=== PATIENT | female | born 1970 | race African-American/Black ===

== ENCOUNTER 2017-11-20 00:31 | Emergency (ER) | payer SELFPAY ==
[2017-11-20] MEDS ORDERED: DEXAMETHASONE SOD PHOS INJ 10 MG/1 ML VIAL IM ONE (00:59)
[2017-11-20] MEDS ORDERED: KETOROLAC TROMETHAMINE 60 MG/2 ML SDV IM ONE (00:59)
--- NOTE | 2017-11-20 01:05 | ER Document Report ---
ED Neck/Back Problem - General Chief Complaint: Arm Pain Stated Complaint: SHOOTING PAINS FROM FINGER TIPS TO SHOULDER Time Seen by Provider: 11/20/17 00:51 Mode of Arrival: Ambulatory Information source: Patient Notes: 47-year-old female presents to ED for complaint of shooting pain from the fingertips up to the shoulder. She states she does not have any past medical history of this. But when we were discussing it. She states she does have pain in her neck upper back shoulder says sometimes in her arm. She also has sharp shooting pain in her lower back that she states she has a history of and is had in the past. She states she sometimes has pain radiating down her leg but not at this time. TRAVEL OUTSIDE OF THE [place] IN LAST 30 DAYS: No - HPI Patient complains to provider of: Pain, Upper back, Lower back - And down the right arm to the hand with tingling at and numbness at times Onset: Other - The lower back for a while in the upper back she states she has had in the past but has been since Friday. 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 denies: Constipation, Fever, Incontinence, Motor loss, Radiation to chest, Radiation to leg, Sensory loss, Sweaty, Unable to urinate Exacerbated by: Movement of neck, Movement of trunk Relieved by: Nothing Similar symptoms previously: Yes Recently seen / treated by doctor: No - Related Data Allergies/Adverse Reactions: latex Allergy (Verified 11/20/17 01:20) Past Medical History - General Information source: Patient - Social History Smoking Status: Never Smoker Cigarette use (# per day): No Chew tobacco use (# tins/day): No Smoking Education Provided: No Frequency of alcohol use: None Occupation: Manager [employer] Lives with: Family Family History: Other - Asthma and aneurysm. denies: Arthritis, CAD, COPD, CVA , DM, Hyperlipidemia, Hypertension, Malignancy, Thyroid Disfunction Patient has suicidal ideation: No Patient has homicidal ideation: No - Past Medical History Cardiac Medical History: Reports: None Pulmonary Medical History: Reports: Hx Asthma - A CHILD EENT Medical History: Reports: None Neurological Medical History: Reports: None Endocrine Medical History: Reports: None Renal/ Medical History: Reports: None Malignancy Medical History: Reports: None GI Medical History: Reports: None Musculoskeltal Medical History: Reports Hx Arthritis, Reports Hx Musculoskeletal Deformity Skin Medical History: Reports None Psychiatric Medical History: Reports: None Traumatic Medical History: Reports: None Infectious Medical History: Reports: None Past Surgical History: Reports: Hx Oral Surgery - WISDOM TEETH, Hx Tonsillectomy - AT AGE 30, Hx Tubal Ligation - 19 YEARS AGO Review of Systems - Review of Systems Notes: Constitutional: [PRESENT: as per HPI. ABSENT: chills, fever(s), headache(s), weight gain, weight loss] Eyes: [ABSENT: visual disturbances] Ears: [ABSENT: hearing changes] Cardiovascular: [ABSENT: chest pain, dyspnea on exertion, edema, orthropnea, palpitations] Respiratory: [ABSENT: cough, hemoptysis] Gastrointestinal: [ABSENT: abdominal pain, constipation, diarrhea, hematemesis, hematochezia, nausea, vomiting] Genitourinary: [ABSENT: dysuria, hematuria] Musculoskeletal: [ABSENT: joint swelling] pain in neck upper back and lower back chronic with numbness and tingling down the right arm since Friday. She states she just started back as a income tax preparer doing repetitive motions Integumentary: [ABSENT: rash, wounds] Neurological: [ABSENT: abnormal gait, abnormal speech, confusion, dizziness, focal weakness, syncope] Psychiatric: [ABSENT: anxiety, depression, homicidal ideation, suicidal ideation ] Endocrine: [ABSENT: cold intolerance, heat intolerance, menstrual abnormalities , polydipsia, polyuria] Hematologic/Lymphatic: [ABSENT: easy bleeding, easy bruising, lymphadenopathy] Physical Exam - Vital signs Vitals: Temp Pulse Resp BP Pulse Ox 97.5 F 71 17 136/78 H 98 11/20/17 00:37 11/20/17 00:37 11/20/17 00:37 11/20/17 00:37 11/20/17 00:37 - Notes Notes: PHYSICAL EXAMINATION: GENERAL: Well-appearing, well-nourished and in no acute distress. HEAD: Atraumatic, normocephalic. EYES: Pupils equal round and reactive to light, extraocular movements intact, conjunctiva are normal. ENT: Nares patent, oropharynx clear without exudates. Moist mucous membranes. NECK: Normal range of motion, supple without lymphadenopathy LUNGS: Breath sounds clear to auscultation bilaterally and equal. No wheezes rales or rhonchi. HEART: Regular rate and rhythm without murmurs ABDOMEN: Soft, nontender, nondistended abdomen. No guarding, no rebound. No masses appreciated. Female : deferred Musculoskeletal: Normal range of motion, no pitting or edema. No cyanosis. Vertebral tenderness to the neck upper back and lower back. Patient states she has had these in the past. Pain to the right arm with range of motion to the right shoulder. Patient has full range of motion to the neck and both shoulders. She denies any recent injuries or falls. She speaks with the even full sentences walks with the even steady gait. She has full range of motion and sensation to both arms, hands, and fingers. NEUROLOGICAL: Cranial nerves grossly intact. Normal speech, normal gait. Normal sensory, motor exams PSYCH: Normal mood, normal affect. SKIN: Warm, Dry, normal turgor, no rashes or lesions noted. Course - Re-evaluation Re-evalutation: 11/20/17 01:42 Patient was treated with Toradol Decadron IM and instructed to follow-up with the primary doctor within the next day or 2. - Vital Signs Vital signs: Temp Pulse Resp BP Pulse Ox 97.9 F 73 20 120/70 97 11/20/17 01:39 11/20/17 01:39 11/20/17 01:39 11/20/17 01:39 11/20/17 01:39 Discharge - Discharge Clinical Impression: Upper back pain on right side, Pain in right arm Low back pain Qualifiers: Chronicity: chronic Back pain laterality: bilateral Sciatica presence: without sciatica Qualified Code(s): M54.5 - Low back pain Condition: Stable Disposition: HOME, SELF-CARE Instructions: Family Physicians / Practices Additional Instructions: LOW BACK PAIN: Three out of every four people will have an episode of disabling back pain during their lifetime. Most commonly the pain is due to straining of the muscles and ligaments in the low back. Usual treatment includes: (1) Rest on a firm surface. Avoid lying on your stomach. (2) Ice pack the painful area. After a few days, gentle heat may be used intermittently to relax the area, or ice packs can be continued. (3) Medication may be needed -- muscle relaxers and antiinflammatory medicines are commonly used. (4) As the back improves, exercises are prescribed to strengthen the back and abdominal muscles. Your doctor will advise you on the proper care for your back at each stage in your recovery. You may be better in a few days -- or healing may take several weeks. If new symptoms of a "herniated disc" (radiation of pain, numbness, or tingling down the back of the leg or weakness in the leg) occur, you should be re-examined. Further testing may be necessary. You were also seen it was for pain in your upper back radiating down your right arm to your hand. This is usually inflammation from the nerves and upper back. You have full range of motion at this time you were able to demonstrate on your examination. You will treated in the emergency room with anti-inflammatory medication Toradol and steroid medication Decadron to calm this inflammation down. You have been given instructions for exercises for the shoulders and the low back. Please do these exercises at least 2-3 times a day until he can follow- up with your primary doctor. Please call within the next 24-48 hours to get a appointment with a primary docto. They will need to refer you to neurology if this pain continues. ICE PACKS: Apply ice packs frequently against the painful area. Many different schedules are recommended, such as "20 minutes on, 20 minutes off" or "one hour ice, two hours rest." If you need to work, you may need to go longer between ice treatments. You should plan to have the area ice packed AT LEAST one fourth of the time. The ice should be applied over the wrap, tape, or splint, or over a layer of cloth -- not directly against the skin. Some ice bags have a built-in cloth and can be put directly on the skin. WARM PACKS: After approximately two days, apply gentle heat (such as a heating pad or hot water bottle) for about 20 to 30 minutes about every two hours -- at least four times daily. Warmth and elevation will help you make a more rapid recovery , and will ease the pain considerably. Do not use HOT heat, and never apply heat for longer than 30 minutes. The continuous heat can invisibly damage skin and muscles -- even when no burn is seen on the surface. Damaged muscles can make you MORE sore. Toradol Injection You have been given an injection of ketorolac tromethamine (Toradol). This is an excellent, safe drug for pain control. It also has potent antiinflammatory action. You should have significant pain relief within about one hour. Toradol is not addicting and is non-sedating. It does not interfere with driving or work. Call or return if you develop itching, hives, shortness of breath, or rash. STEROID MEDICATION: You have been given an injection of medicine of the cortisone/steroid class. This medication is used to control inflammation or allergy. It is often continued as a pill for a short period of time, until the acute process subsides. There are usually no side effects from short-term use of cortisone-like medications. Some persons feel an increased sense of well-being and are not sleepy at bedtime. Long-term use of cortisone medications is best avoided, unless required for a severe condition. If your condition does not remit, or relapses after the course of corticosteroid medication, you should consult your physician. Can also use Aspercreme with lidocaine to these areas to help with your pain. Follow the instructions on the Aspercreme container. Stretching Exercises for the Back The physician has recommended that you begin stretching exercises for your back. These are often used even while the back is painful. However, you should notify the physician if the activities seem to increase your pain. PELVIC TILT: Lie flat on your back with knees bent. Tighten your stomach and buttock muscles so it flattens your lower back against the floor. Hold 10 seconds. Repeat 10 times, twice daily. KNEE RAISE: Lying on the back with knees bent, raise one knee to your chest, then the other. Hold both knees against the chest 10 seconds, then lower one knee at a time. Repeat 10 times, twice daily. PARTIAL TRUNK RAISE: Lie face down, arms at your sides. Keeping your waist on the floor, use your arms raise your chest up. Support yourself on your elbows for 30 seconds. Repeat twice daily, increasing the time to two minutes as you recover. Exercise Program for the Shoulder Since the shoulder moves in so many directions, the joint attachment is weak. Muscles provide most of the stability to the shoulder. You must exercise your shoulder to prevent painful instability or stiffening. PASSIVE - These may be begun within a few days of the injury. While standing, lean forward, allowing the arm to hang down towards the floor. Move the arm in small circles while slowly twisting your chest towards and away from the hanging arm. Do this for one minute. ACTIVE - These may be performed when the doctor gives permission. Begin with the arms at the sides. Raise the arms forward (shoulder's width apart) until they reach shoulder level. Then slowly swing both arms back until they are aiming straight out away from each other. Then bring them forward again, and finally, lower them to your sides. Repeat 20 to 30 times. As you improve, put weights in your hands for the exercise. Start with one pound, and work up to 10 pounds. Never use more than is comfortable. Athletes may work up to 30 pounds. FOLLOW-UP CARE: If you have been referred to a physician for follow-up care, call the physician s office for an appointment as you were instructed or within the next two days. If you experience worsening or a significant change in your symptoms, notify the physician immediately or return to the Emergency Department at any time for re-evaluation. Forms: Elevated Blood Pressure, Return to Work Referrals: OREN ECHEVERRIA MD [ASSOCIATE] - Follow up as needed
[2017-11-20 01:40] VITALS: BP 120/70
== END 2017-11-20 01:50 | disposition home or self-care (01) ==
LOC: ER 00:31
DX: M79.601 Pain in right arm (principal); R20.0 Anesthesia of skin; R20.2 Paresthesia of skin; M54.89 Other dorsalgia; M54.2 Cervicalgia; M54.5 Low back pain; G89.29 Other chronic pain
CPT/HCPCS: 99283; J1885; J1100

== ENCOUNTER 2018-07-18 16:19 | Emergency (ER) | payer SELFPAY ==
--- NOTE | 2018-07-18 16:52 | ER Document Report ---
ED Medical Screen (RME) - General Chief Complaint: Fall Injury Stated Complaint: FALL,HEAD PAIN Time Seen by Provider: 07/18/18 16:50 Mode of Arrival: Ambulatory Information source: Patient TRAVEL OUTSIDE OF THE [place] IN LAST 30 DAYS: No - HPI Patient complains to provider of: fall Onset: Other - pt. fell 2 days ago with injury to R knee, elbow, and shoulder. No LOC, no neck pain - Related Data Allergies/Adverse Reactions: latex Allergy (Verified 11/20/17 01:20) Past Medical History - Social History Chew tobacco use (# tins/day): No Frequency of alcohol use: None Drug Abuse: None Pulmonary Medical History: Reports: Hx Asthma - A CHILD Renal/ Medical History: Denies: Hx Peritoneal Dialysis Musculoskeltal Medical History: Reports Hx Arthritis, Reports Hx Musculoskeletal Deformity Past Surgical History: Reports: Hx Oral Surgery - WISDOM TEETH, Hx Tonsillectomy - AT AGE 30, Hx Tubal Ligation - 19 YEARS AGO. Denies: Hx Adenoidectomy - Immunizations Immunizations up to date: Yes Physical Exam - Vital signs Vitals: Temp Pulse Resp BP Pulse Ox 98.6 F 82 17 135/71 H 97 07/18/18 16:37 07/18/18 16:37 07/18/18 16:37 07/18/18 16:37 07/18/18 16:37 Course - Vital Signs Vital signs: Temp Pulse Resp BP Pulse Ox 98.6 F 82 17 135/71 H 97 07/18/18 16:37 07/18/18 16:37 07/18/18 16:37 07/18/18 16:37 07/18/18 16:37
--- NOTE | 2018-07-18 17:38 | RADIOLOGY REPORT (SQ) ---
EXAM DESCRIPTION: ELBOW RIGHT AP/LAT COMPLETED DATE/TIME: 07/18/2018 5:26 pm REASON FOR STUDY: fall COMPARISON: None. EXAM PARAMETERS: NUMBER OF VIEWS: Four views. TECHNIQUE: AP, lateral and both oblique radiographic images acquired of the right elbow. LIMITATIONS: None. FINDINGS: MINERALIZATION: Normal. BONES: No acute fracture or dislocation. No worrisome bone lesions. JOINTS: No effusion. SOFT TISSUES: No significant soft tissue swelling. No radiopaque foreign body. OTHER: No other significant finding. IMPRESSION: NO FRACTURE. TECHNICAL DOCUMENTATION: JOB ID: [id number] [place]-72 2010 [employer]- All Rights Reserved Reading location - IP/workstation name: [email or web address]
--- NOTE | 2018-07-18 17:39 | RADIOLOGY REPORT (SQ) ---
EXAM DESCRIPTION: KNEE RIGHT 3 VIEWS COMPLETED DATE/TIME: 07/18/2018 5:26 pm REASON FOR STUDY: fall COMPARISON: None. EXAM PARAMETERS: NUMBER OF VIEWS: Three views. TECHNIQUE: AP, lateral and oblique radiographic images acquired of the right knee. LIMITATIONS: None. FINDINGS: MINERALIZATION: Normal. BONES: No acute fracture or dislocation. No worrisome bone lesions. JOINTS: No effusion. SOFT TISSUES: No significant soft tissue swelling. No radiopaque foreign body. OTHER: No other significant finding. IMPRESSION: NO FRACTURE. TECHNICAL DOCUMENTATION: JOB ID: [id number] [place]-72 2010 [employer]- All Rights Reserved Reading location - IP/workstation name: [email or web address]
--- NOTE | 2018-07-18 17:41 | RADIOLOGY REPORT (SQ) ---
EXAM DESCRIPTION: SHOULDER RIGHT 2 OR MORE VIEWS COMPLETED DATE/TIME: 07/18/2018 5:26 pm REASON FOR STUDY: fall COMPARISON: None. NUMBER OF VIEWS: Three views. TECHNIQUE: Internal rotation, external rotation, and Y view images acquired of the right shoulder. LIMITATIONS: None. FINDINGS: MINERALIZATION: Normal. BONES: No acute fracture or dislocation. No worrisome bone lesions. JOINTS: No dislocation. VISUALIZED LUNGS AND RIBS: No pneumothorax. No rib fracture. SOFT TISSUES: No radiopaque foreign body. OTHER: No other significant finding. IMPRESSION: NO RADIOGRAPHIC EVIDENCE OF ACUTE INJURY. TECHNICAL DOCUMENTATION: JOB ID: [id number] [place]-72 2010 [employer]- All Rights Reserved Reading location - IP/workstation name: [email or web address]
[2018-07-18] MEDS ORDERED: KETOROLAC TROMETHAMINE 60 MG/2 ML SDV IM ONE (19:54)
--- NOTE | 2018-07-18 20:04 | ER Document Report ---
HPI - HPI Pain Level: 3 Notes: Patient is a 48-year-old female who presents with complaint of right knee and right arm pain. Patient states that she tripped and fell 2 days ago. Patient reports that she did hit her head but denies any loss of consciousness or vomiting. - REPRODUCTIVE Reproductive: DENIES: : - MUSCULOSKELETAL Musculoskeletal: REPORTS: Extremity pain - right knee right arm Past Medical History - General Information source: Patient - Social History Smoking Status: Never Smoker Chew tobacco use (# tins/day): No Frequency of alcohol use: None Drug Abuse: None Family History: Other - Asthma and aneurysm. denies: Arthritis, CAD, COPD, CVA , DM, Hyperlipidemia, Hypertension, Malignancy, Thyroid Disfunction Patient has suicidal ideation: No Patient has homicidal ideation: No Pulmonary Medical History: Reports: Hx Asthma - A CHILD Renal/ Medical History: Denies: Hx Peritoneal Dialysis Musculoskeletal Medical History: Reports Hx Arthritis, Reports Hx Musculoskeletal Deformity Past Surgical History: Reports: Hx Oral Surgery - WISDOM TEETH, Hx Tonsillectomy - AT AGE 30, Hx Tubal Ligation - 19 YEARS AGO. Denies: Hx Adenoidectomy - Immunizations Immunizations up to date: Yes Vertical Provider Document - CONSTITUTIONAL Notes: PHYSICAL EXAMINATION: GENERAL: Well-appearing, well-nourished and in no acute distress. HEAD: Atraumatic, normocephalic. EYES: Pupils equal round extraocular movements intact, conjunctiva are normal. ENT: Nares patent NECK: Normal range of motion LUNGS: No respiratory distress Musculoskeletal: Normal range of motion, cap refill less than 3 seconds, normal motor and sensation distal to injury. NEUROLOGICAL: Normal speech, normal gait. PSYCH: Normal mood, normal affect. SKIN: Warm, Dry, normal turgor, no rashes or lesions noted. - INFECTION CONTROL TRAVEL OUTSIDE OF THE [place] IN LAST 30 DAYS: No Course - Re-evaluation Re-evalutation: All imaging is negative for any acute findings. Patient reports reduction in her pain after administration of IM Toradol. Patient will be discharged home in stable condition. - Vital Signs Vital signs: Temp Pulse Resp BP Pulse Ox 98.6 F 82 17 135/71 H 97 07/18/18 16:37 07/18/18 16:37 07/18/18 16:37 07/18/18 16:37 11/03/18 16:37 Discharge - Discharge Clinical Impression: Contusion Qualifiers: Encounter type: initial encounter Contusion area: forearm Laterality: right Qualified Code(s): S50.11XA - Contusion of right forearm, initial encounter Condition: Stable Disposition: HOME, SELF-CARE Additional Instructions: Contusion Your injury has resulted in a contusion -- a crushing of the deep tissues. No injury to important structures was detected during the physician's exam. Contusions vary in the amount of pain they cause, and in the length of time required for healing. Typically, the area will become bruised, and will remain painful to touch for two or three weeks. However, most patients are back to working and playing within a few days. After the initial period of rest and cold-packs, your symptoms (together with the doctor's recommendations) will determine how rapidly you can get back to full activity. Usually this means "do what feels okay, but don't do things that hurt." If re-examination was recommended, it's important to follow up as instructed. Call the doctor or return any time if pain increases, if swelling becomes severe, if you develop numbness or weakness in an injured extremity, or if any other alarming symptoms occur. Ice & Elevation Apply ice packs frequently against the painful area. Many different schedules are recommended, such as "20 minutes on, 20 minutes off" or "one hour ice, two hours rest." If you need to work, you may need to go longer between ice treatments. You should plan to have the area ice packed AT LEAST one- fourth of the time. The ice should be applied over the wrap, tape, or splint, or over a layer of cloth -- not directly against the skin. Some ice bags have a built-in cloth and can be put directly on the skin. Your injured part should be elevated as much as possible over the next 48 hours. Try to keep the injury above the level of the heart. Avoid use of the injured area. Elevation and rest will decrease the swelling. All of your x-rays were normal today. Please take ibuprofen 600 mg every 6 hours for the pain and inflammation. Ice, elevate as outlined above. Follow- up with your primary care provider if your symptoms are not improving over the next 5-7 days. They may want to consider doing an MRI of your right knee as I cannot rule out internal ligament injury. Prescriptions: Diclofenac Sodium [Voltaren] 10 gm TP BID #1 tube
[2018-07-18 20:30] VITALS: BP 123/40
== END 2018-07-18 20:30 | disposition home or self-care (01) ==
LOC: ER 16:19
DX: S50.11XA Contusion of right forearm, initial encounter (principal); M25.561 Pain in right knee; W19.XXXA Unspecified fall, initial encounter
CPT/HCPCS: 99283; 96372; 73070; 73562; 73030; J1885

== ENCOUNTER 2018-07-20 19:06 | Emergency (ER) | payer SELFPAY ==
[2018-07-20] MEDS ORDERED: HYDROCODONE/ACETAMINOPHEN 10-325 MG TABLET PO ONE (21:10)
--- NOTE | 2018-07-20 21:14 | ER Document Report ---
ED Medical Screen (RME) - General Chief Complaint: Arm Pain Stated Complaint: RIGHT ARM PAIN Time Seen by Provider: 07/20/18 21:06 Notes: Patient is a 48-year-old female presenting to the emergency department complaining of swelling to the proximal aspect of her right forearm. Patient states on 08/14/2018 she fell hitting her right arm for same. States x-rays were negative for fracture. Patient states since then she has noted increased swelling to the right forearm proximally just distal to the right elbow. Patient states it is extremely painful which is why she presents to the emergency room. Patient denies being on any blood thinners. Physical exam: Patient has ecchymosis noted proximal forearm distal to the elbow medial. Baseball size swelling noted with overlying abrasion and warmth. Patient has full range of motion of right elbow and right wrist. Radial, ulnar, medial nerve are intact. Patient is able to abduct and adduct all 5 fingers on right hand. I have greeted and performed a rapid initial assessment of this patient. A comprehensive ED assessment and evaluation of the patient, analysis of test results and completion of the medical decision making process will be conducted by additional ED providers. TRAVEL OUTSIDE OF THE [place] IN LAST 30 DAYS: No - Related Data Allergies/Adverse Reactions: latex Allergy (Verified 07/18/18 16:53) Past Medical History Pulmonary Medical History: Reports: Hx Asthma - A CHILD Renal/ Medical History: Denies: Hx Peritoneal Dialysis Musculoskeltal Medical History: Reports Hx Arthritis, Reports Hx Musculoskeletal Deformity Past Surgical History: Reports: Hx Oral Surgery - WISDOM TEETH, Hx Tonsillectomy - AT AGE 30, Hx Tubal Ligation. Denies: Hx Adenoidectomy - Immunizations Immunizations up to date: Yes Physical Exam - Vital signs Vitals: Temp Pulse Resp BP Pulse Ox 98.6 F 84 16 150/93 H 98 07/20/18 19:09 07/20/18 19:09 07/20/18 19:09 07/20/18 19:09 07/20/18 19:09 Course - Vital Signs Vital signs: Temp Pulse Resp BP Pulse Ox 98.6 F 84 16 150/93 H 98 07/20/18 19:09 07/20/18 19:09 07/20/18 19:09 07/20/18 19:09 07/20/18 19:09
--- NOTE | 2018-07-20 21:22 | RADIOLOGY REPORT (SQ) ---
EXAM DESCRIPTION: XR ELBOW 3 VIEWS COMPLETED DATE/TME: 07/20/2018 20:45 CLINICAL HISTORY: 48 years, Female, pain/swelling Findings: Bony alignment is anatomic. No fracture or dislocation. Significant moderate soft tissue swelling posteriorly to the elbow. No significant displacement of the fat pads. IMPRESSION: No fracture.
--- NOTE | 2018-07-20 22:02 | RADIOLOGY REPORT (SQ) ---
US EXTREMITY MUSCULOSKELETAL LIMITED HISTORY: Right proximal forearm swelling and warmth. COMPARISON: None. TECHNIQUE: Hernandes-scale and color Doppler images of the right forearm were obtained. FINDINGS: Approximately 5.0 x 5.8 x 2.5 cm heterogeneous well encapsulated collection within the subcutaneous tissues. There are cystic areas within the collection. Surrounding and possibly internal power Doppler blood flow is seen. IMPRESSION: 5.8 cm well-circumscribed collection in the forearm soft tissues with surrounding and possibly internal power Doppler blood flow. Findings may represent hematoma, abscess, or underlying mass. If clinically indicated, consider MRI for complete evaluation.
--- NOTE | 2018-07-20 23:50 | ER Document Report ---
HPI - HPI Patient complains to provider of: right arm swelling Pain Level: 5 Context: Patient is a 48-year-old female presenting to the emergency department complaining of swelling to the proximal aspect of her right forearm. Patient states on 07/18/2018 she fell hitting her right arm for same. States x-rays were negative for fracture. Patient states since then she has noted increased swelling to the right forearm proximally just distal to the right elbow. Patient states it is extremely painful which is why she presents to the emergency room. Patient denies being on any blood thinners. Past medical history: None Medications: None allergies: Latex - REPRODUCTIVE Reproductive: DENIES: : - DERM Skin Color: Normal Past Medical History - General Information source: Patient - Social History Smoking Status: Never Smoker Lives with: Family Family History: Reviewed & Not Pertinent, Other - Asthma and aneurysm. denies: Arthritis, CAD, COPD, CVA, DM, Hyperlipidemia, Hypertension, Malignancy, Thyroid Disfunction Patient has suicidal ideation: No Patient has homicidal ideation: No Pulmonary Medical History: Reports: Hx Asthma - A CHILD Renal/ Medical History: Denies: Hx Peritoneal Dialysis Musculoskeletal Medical History: Reports Hx Arthritis, Reports Hx Musculoskeletal Deformity Past Surgical History: Reports: Hx Oral Surgery - WISDOM TEETH, Hx Tonsillectomy - AT AGE 30, Hx Tubal Ligation. Denies: Hx Adenoidectomy - Immunizations Immunizations up to date: Yes Vertical Provider Document - CONSTITUTIONAL Agree With Documented VS: Yes Notes: GENERAL: Alert, interacts well. No acute distress. HEAD: Normocephalic, atraumatic. EYES: Pupils equal, round, and reactive to light. Extraocular movements intact. ENT: Oral mucosa moist, tongue midline. NECK: Full range of motion. Supple. Trachea midline. LUNGS: Clear to auscultation bilaterally, no wheezes, rales, or rhonchi. No respiratory distress. HEART: Regular rate and rhythm. No murmur ABDOMEN: Soft, non-tender. Non-distended. Bowel sounds present in all 4 quadrants. EXTREMITIES: Moves all 4 extremities spontaneously. normal radial and dorsalis pedis pulses bilaterally. Patient has ecchymosis noted proximal forearm distal to the elbow medial. Baseball size swelling noted with overlying abrasion and warmth. Patient has full range of motion of right elbow and right wrist. Radial, ulnar, medial nerve are intact. Patient is able to abduct and adduct all 5 fingers on right hand. No signs of compartment syndrome. BACK: no cervical, thoracic, lumbar midline tenderness. No saddle anesthesia, normal distal neurovascular exam. NEUROLOGICAL: Alert and oriented x3. Normal speech. cranial nerves II through XII grossly intact PSYCH: Normal affect, normal mood. SKIN: Warm, dry, normal turgor. No rashes or lesions noted. - INFECTION CONTROL TRAVEL OUTSIDE OF THE [place] IN LAST 30 DAYS: No Course - Re-evaluation Re-evalutation: 07/21/18 00:07 Discussed with the patient allergy to latex with Estrellita who is a pharmacist through the on-call pharmacy number to the hospital. She states although patient has a localized reaction to latex that giving her the tetanus is okay at this time. 07/21/18 00:50 20G needle placed center of swollen area as suggested by Dr. Thapa. Pure blood was expressed, a total of 20 cc, site was dressed with gauze and monty wrap. Discussed follow up with PCP and return precautions discussed. Pt. stated pain was "immediately better." - Vital Signs Vital signs: Temp Pulse Resp BP Pulse Ox 98.6 F 84 16 150/93 H 98 07/20/18 19:09 07/20/18 19:09 07/20/18 19:09 07/20/18 19:09 07/20/18 19:09 Discharge - Discharge Clinical Impression: Hematoma Condition: Stable Disposition: HOME, SELF-CARE Instructions: Contusion ([facility]) Additional Instructions: As we discussed you should keep the Monty wrap on for the next 24 hours. After that you should keep the site clean and dry. Please continue to keep a pressure dressing on the contusion and apply ice as needed. Please return to the emergency room should you have any numbness or tingling in the right arm or any other concerning symptoms.
[2018-07-21] MEDS ORDERED: DIPH/PERTUSS(ACELL)/TETANUS VAC/PF 0.5 ML SYR (>=10YO) IM ONE (00:07)
[2018-07-21] MEDS ORDERED: HYDROCODONE/ACETAMINOPHEN 5-325 MG (6 TAB/ER DISP) PO PRN (00:53)
[2018-07-21 01:17] VITALS: BP 133/94
== END 2018-07-21 02:14 | disposition home or self-care (01) ==
LOC: ER 19:06
DX: S40.021A Contusion of right upper arm, initial encounter (principal); M79.89 Other specified soft tissue disorders; M25.521 Pain in right elbow; M79.631 Pain in right forearm; W22.8XXA Striking against or struck by other objects, initial encounter; J45.909 Unspecified asthma, uncomplicated
CPT/HCPCS: 76882; 90471; 90715; 99284

== ENCOUNTER 2018-07-21 19:03 | Emergency (ER) | payer SELFPAY ==
[2018-07-21 19:14] VITALS: BP 146/73
--- NOTE | 2018-07-21 21:09 | ER Document Report ---
ED Extremity Problem, Upper - General Chief Complaint: Allergic Reaction Stated Complaint: HAND/ARM SWOLLEN Time Seen by Provider: 07/21/18 20:18 Mode of Arrival: Ambulatory Information source: Patient Notes: 48-year-old female presented to ED for complaint of swelling to her right arm. She states she was seen yesterday and treated for hematoma. She states that the swelling increased today. States she also has some rash to her face and she thinks this is an allergic reaction to her medicine. Patient does not have any rash anywhere except for a few maculopapules to the face. There is edema to the right hand and forearm. She does have a swollen what looks to be a hematoma or cellulitis just below the elbow. Patient is alert and oriented respirations regular and unlabored speaking in full sentences. She states she has not been keeping her arm elevated. TRAVEL OUTSIDE OF THE [place] IN LAST 30 DAYS: No - HPI Patient complains to provider of: Right, Elbow, Forearm, Hand Onset: Other - 07/18/2018 Recent injury: Yes Where: Home Quality of pain: Achy Severity of pain: Moderate Pain Level: 4 Context: Fall Exacerbated by: Movement, Exertion Relieved by: Nothing Similar symptoms previously: Yes Recently seen / treated by doctor: Yes - Related Data Allergies/Adverse Reactions: latex Allergy (Verified 07/18/18 16:53) Past Medical History - General Information source: Patient - Social History Smoking Status: Never Smoker Cigarette use (# per day): No Chew tobacco use (# tins/day): No Lives with: Family Family History: Reviewed & Not Pertinent, Other - Asthma and aneurysm Patient has suicidal ideation: No Patient has homicidal ideation: No - Past Medical History Cardiac Medical History: Reports: None Pulmonary Medical History: Reports: Hx Asthma - A CHILD EENT Medical History: Reports: None Neurological Medical History: Reports: None Endocrine Medical History: Reports: None Renal/ Medical History: Reports: None Malignancy Medical History: Reports: None GI Medical History: Reports: None Musculoskeletal Medical History: Reports Hx Arthritis, Reports Hx Musculoskeletal Deformity Skin Medical History: Reports None Psychiatric Medical History: Reports: None Traumatic Medical History: Reports: None Infectious Medical History: Reports: None Past Surgical History: Reports: Hx Oral Surgery - WISDOM TEETH, Hx Tonsillectomy - AT AGE 30, Hx Tubal Ligation - Immunizations Immunizations up to date: Yes Review of Systems - Review of Systems Constitutional: No symptoms reported EENT: No symptoms reported Cardiovascular: No symptoms reported Respiratory: No symptoms reported Gastrointestinal: No symptoms reported Genitourinary: No symptoms reported Female Genitourinary: No symptoms reported Musculoskeletal: Other - Right arm swelling and pain bruises bilateral lower extremities just below the knee Skin: Change in color - Multiple bruises Hematologic/Lymphatic: No symptoms reported Neurological/Psychological: No symptoms reported -: Yes All other systems reviewed and negative Physical Exam - Vital signs Vitals: Temp Pulse Resp BP Pulse Ox 98.6 F 83 16 146/73 H 97 07/21/18 19:10 07/21/18 19:10 07/21/18 19:10 07/21/18 19:10 07/21/18 19:10 Interpretation: Normal - General General appearance: Appears well, Alert - HEENT Head: Normocephalic, Atraumatic Eyes: Normal Pupils: PERRL - Respiratory Respiratory status: No respiratory distress Chest status: Nontender Breath sounds: Normal Chest palpation: Normal - Cardiovascular Rhythm: Regular Heart sounds: Normal auscultation Murmur: No - Abdominal Inspection: Normal Distension: No distension Bowel sounds: Normal Tenderness: Nontender Organomegaly: No organomegaly - Back Back: Normal, Nontender - Extremities General upper extremity: Normal ROM, Normal temperature General lower extremity: Normal inspection, Nontender, Normal color, Normal ROM , Normal temperature, Normal weight bearing. No: Christopher's sign Elbow: Ecchymosis Forearm: Tender, Ecchymosis. No: Abrasion, Deformity, Instability, Laceration Hand: Swelling Calf: Ecchymosis Ankle: Normal - Neurological Neuro grossly intact: Yes Cognition: Normal Orientation: AAOx4 [place]iss[place] Coma Scale Eye Opening: Spontaneous [place] Coma Scale Verbal: Oriented [place] Coma Scale Motor: Obeys Commands [place] Coma Scale Total: 15 Speech: Normal Motor strength normal: LUE, RUE, LLE, RLE Sensory: Normal - Psychological Associated symptoms: Normal affect, Normal mood - Skin Skin Temperature: Warm Skin Moisture: Dry Skin Color: Normal Course - Re-evaluation Re-evalutation: 07/21/18 21:[address] Solis who ultrasound the arm, she did not find a definite pocket of fluid she recommended using an 18-gauge needle and tried to aspirate the most fluctuant area. It was completed with very minimal bloody drainage. Dressing was applied. Patient was started on doxycycline. Patient will be discharged home with instruction to follow-up with primary doctor. - Vital Signs Vital signs: Temp Pulse Resp BP Pulse Ox 98.6 F 83 16 146/73 H 97 07/21/18 19:10 07/21/18 19:10 07/21/18 19:10 07/21/18 19:10 07/21/18 19:10 Procedures - Immobilization Left Shoulder Time completed: 21:12 Immobilizer type: Sling Performed by: JEN Post-Proc Neuro Vasc Exam: Normal Discharge - Discharge Clinical Impression: swelling to left arm below hematoma Condition: Stable Disposition: HOME, SELF-CARE Instructions: Family Physicians / Practices Additional Instructions: You were seen today for some swelling to the left arm and a rash to your face. CELLULITIS: You have an infection of your skin and underlying soft tissues called cellulitis. This is due to bacteria, which can enter through any break in the skin, or even through an irritated hair follicle. Untreated, cellulitis will usually worsen. Antibiotics are required. Usually, warm packs or warm soaks, and elevation of the infected area are recommended. You should start getting better within 24 to 36 hours. Most infections respond quickly to the right medication. Follow-up care is important, however, to check for abscess (boil) formation, unsuspected foreign body, or resistant infection. If you develop fever, chills, or if the area of infection is becoming rapidly more swollen or painful, call the doctor at once. DOXYCYCLINE: Doxycycline (Vibramycin, Doryx) is an antibiotic of the tetracycline family. This type of drug is useful for infections of the respiratory tract and genital tract, and is sometimes used for intestinal infections. Unlike most tetracyclines, doxycycline can be taken with food. It is longer acting, and (usually) less prone to side effects than regular tetracycline. Tetracycline antibiotics can stain immature teeth and SHOULD NOT BE TAKEN BY CHILDREN, NURSING MOTHERS, OR WOMEN. Tetracyclines can make you more prone to sunburn. Abdominal cramping, nausea, and diarrhea are occasional side effects. Women may experience vaginal yeast infections. Call the doctor at once if you develop hives, itching, shortness of breath , or lightheadedness. ICE & ELEVATION: Apply ice packs frequently against the painful area. Many different schedules are recommended, such as "20 minutes on, 20 minutes off" or "one hour ice, two hours rest." If you need to work, you may need to go longer between ice treatments. You should plan to have the area ice packed AT LEAST one- fourth of the time. The ice should be applied over the wrap, tape, or splint, or over a layer of cloth -- not directly against the skin. Some ice bags have a built-in cloth and can be put directly on the skin. Your injured part should be elevated as much as possible over the next 48 hours. Try to keep the injury above the level of the heart. Avoid use of the injured area. Elevation and rest will decrease the swelling. USE OF [id number]-ODF-SSIIOKM IBUPROFEN: Ibuprofen (Advil, Nuprin, Medipren, Motrin IB) is a medication for fever and pain control. In addition, it has anti- inflammatory effects which may be beneficial, especially in the treatment of injuries. It's best to take ibuprofen with food. Persons with ulcer disease or allergy to aspirin should notify their physician of this before taking ibuprofen. Ibuprofen can be given every four to six hours, for a total of four doses daily. Age Pain or fever dose Antiinflammatory dose 6-8 yr 200 mg (1 tab) 200 mg (1 tab) 9-11 yr 200 mg (1 tab) 200-400 mg (1-2 tab) 11-14 yr 200-400 mg (1-2 tab) 400 mg (2 tab) 15-adult 400 mg (2 tab) 600 mg (3 tab) You have been provided with a sling to help you keep your arm elevated to reduce the swelling and edema to your hand and arm. Please continue to exercise your shoulder so you do not get a frozen shoulder from using the sling. Exercise Program for the Shoulder Since the shoulder moves in so many directions, the joint attachment is weak. Muscles provide most of the stability to the shoulder. You must exercise your shoulder to prevent painful instability or stiffening. PASSIVE - These may be begun within a few days of the injury. While standing, lean forward, allowing the arm to hang down towards the floor. Move the arm in small circles while slowly twisting your chest towards and away from the hanging arm. Do this for one minute. ACTIVE - These may be performed when the doctor gives permission. Begin with the arms at the sides. Raise the arms forward (shoulder's width apart) until they reach shoulder level. Then slowly swing both arms back until they are aiming straight out away from each other. Then bring them forward again, and finally, lower them to your sides. Repeat 20 to 30 times. As you improve, put weights in your hands for the exercise. Start with one pound, and work up to 10 pounds. Never use more than is comfortable. Athletes may work up to 30 pounds. FOLLOW-UP CARE: If you have been referred to a physician for follow-up care, call the physician s office for an appointment as you were instructed or within the next two days. If you experience worsening or a significant change in your symptoms, notify the physician immediately or return to the Emergency Department at any time for re-evaluation. Prescriptions: Doxycycline Hyclate 100 mg PO BID #14 tablet Forms: Elevated Blood Pressure
== END 2018-07-21 21:23 | disposition home or self-care (01) ==
LOC: ER 19:03
DX: S40.022A Contusion of left upper arm, initial encounter (principal); T78.40XA Allergy, unspecified, initial encounter; M79.89 Other specified soft tissue disorders; R21 Rash and other nonspecific skin eruption; X58.XXXA Exposure to other specified factors, initial encounter; J45.909 Unspecified asthma, uncomplicated
CPT/HCPCS: 99283

== ENCOUNTER → 2020-03-09 | Outpatient (CLI) | payer OTHER ==
--- NOTE | 2020-03-09 13:35 | RADIOLOGY REPORT (SQ) ---
EXAM DESCRIPTION: KNEE LEFT 2 VIEWS IMAGES COMPLETED DATE/TIME: 03/09/2020 10:00 am REASON FOR STUDY: RT KNEE PAIN,LT KNEE PAIN,RT SHOULDER PAIN M25.561 PAIN IN RIGHT KNEE M25.562 PA IN IN LEFT KNEE M25.511 PAIN IN RIGHT SHOULDER COMPARISON: None. NUMBER OF VIEWS: Two views. TECHNIQUE: AP and lateral radiographic images acquired of the left knee. LIMITATIONS: None. FINDINGS: MINERALIZATION: Normal. BONES: No acute fracture or dislocation. No worrisome bone lesions. JOINT: No effusion. SOFT TISSUES: No soft tissue swelling. No radio-opaque foreign body. OTHER: No other significant finding. IMPRESSION: NEGATIVE STUDY OF THE LEFT KNEE. NO RADIOGRAPHIC EVIDENCE OF ACUTE INJURY. TECHNICAL DOCUMENTATION: JOB ID: [id number] 2010 [employer]- All Rights Reserved Reading location - IP/workstation name: [email or web address]
--- NOTE | 2020-03-09 13:36 | RADIOLOGY REPORT (SQ) ---
EXAM DESCRIPTION: KNEE RIGHT 2 VIEWS IMAGES COMPLETED DATE/TIME: 03/09/2020 10:00 am REASON FOR STUDY: RT KNEE PAIN,LT KNEE PAIN,RT SHOULDER PAIN M25.561 PAIN IN RIGHT KNEE M25.562 PA IN IN LEFT KNEE M25.511 PAIN IN RIGHT SHOULDER COMPARISON: None. NUMBER OF VIEWS: Two views. TECHNIQUE: AP and lateral radiographic images acquired of the right knee. LIMITATIONS: None. FINDINGS: MINERALIZATION: Normal. BONES: No acute fracture or dislocation. No worrisome bone lesions. JOINT: No effusion. SOFT TISSUES: No soft tissue swelling. No radio-opaque foreign body. OTHER: No other significant finding. IMPRESSION: NEGATIVE STUDY OF THE RIGHT KNEE. NO RADIOGRAPHIC EVIDENCE OF ACUTE INJURY. TECHNICAL DOCUMENTATION: JOB ID: [id number] 2010 [employer]- All Rights Reserved Reading location - IP/workstation name: [email or web address]
--- NOTE | 2020-03-09 13:37 | RADIOLOGY REPORT (SQ) ---
EXAM DESCRIPTION: SHOULDER RIGHT 2 OR MORE VIEWS IMAGES COMPLETED DATE/TIME: 03/09/2020 10:00 am REASON FOR STUDY: RT KNEE PAIN,LT KNEE PAIN,RT SHOULDER PAIN M25.561 PAIN IN RIGHT KNEE M25.562 PA IN IN LEFT KNEE M25.511 PAIN IN RIGHT SHOULDER COMPARISON: None. NUMBER OF VIEWS: Three views. TECHNIQUE: Internal rotation, external rotation, and Y view images acquired of the right shoulder. LIMITATIONS: None. FINDINGS: MINERALIZATION: Normal. BONES: No acute fracture. No worrisome bone lesions. JOINTS: No dislocation. VISUALIZED LUNGS AND RIBS: No pneumothorax. No rib fracture. SOFT TISSUES: No radiopaque foreign body. OTHER: No other significant finding. IMPRESSION: NEGATIVE STUDY OF THE RIGHT SHOULDER. NO RADIOGRAPHIC EVIDENCE OF ACUTE INJURY. TECHNICAL DOCUMENTATION: JOB ID: [id number] 2010 [employer]- All Rights Reserved Reading location - IP/workstation name: [email or web address]
== END ==
LOC: OD 09:26
PROVIDERS: ATTEND Physician Assistant
DX: M25.561 Pain in right knee (principal); M25.562 Pain in left knee; M25.511 Pain in right shoulder